=== PATIENT | male | born 1945 | race Asian ===

== ENCOUNTER 2017-03-08 17:50 | Inpatient (IN) | payer MEDICARE, OTHER ==
--- NOTE | 2017-03-08 19:32 | PDOC ---
History of Present Illness - General History Source: Patient, Family (Son-in-law), Old Records Exam Limitations: No Limitations - History of Present Illness Initial Comments: 03/08/17 19:36 The patient is a 71 year old male, with a significant past medical history of atrial fibrillation (on Xarelto) and gastric CA (nine years ago) s/p resection, who presents to the emergency department with worsening left sided facial redness, pain and swelling for the past 5 days. The patient states that 5 days ago, he was shaving and cut his left lower lip. The following day the noticed some drainage from the wound. Over the course of the past several days, he has noticed increasing redness, pain and swelling to the left side of his face. He reports that he saw his PCP who prescribed Keflex, which he states he has been compliant with. However, because his symptoms have been progressively worsening , he came to the ED for further evaluation. The patient denies fever or chills. The patient denies recently returned from [place] on 02/21/2017. The patients son- in-law is at the bedside. Allergies: None reported. Past Surgical History: Resection. Social History: Former smoker. Denies alcohol or drug use. PCP: Dr. Bower ([facility]; Not On Staff) <Emily Reece - Last Filed: 03/08/17 19:37> <Luz Marina Wagner - Last Filed: 03/09/17 05:36> - General Chief Complaint: Redness To Affected Area Stated Complaint: FACIAL SWELLING & REDNESS Time Seen by Provider: 03/08/17 18:19 Past History <Emily Reece - Last Filed: 03/08/17 19:37> - Past Medical History Cancer: Yes (STOMACH) Cardiac Disorders: Yes (afib) GI Disorders: Yes - Surgical History Abdominal Surgery: Yes (STOMACH CA) - Psycho/Social/Smoking Cessation Hx Suicidal Ideation: No Smoking History: Former smoker Have you smoked in the past 12 months: No If you are a former smoker, when did you quit?: 2007 Information on smoking cessation initiated: No Hx Alcohol Use: No Drug/Substance Use Hx: No Substance Use Type: None <Luz Marina Wagner - Last Filed: 03/09/17 05:36> - Past Medical History Allergies/Adverse Reactions: Allergies Allergy/AdvReac Type Severity Reaction Status Date / Time No Known Allergies Allergy Verified 11/09/16 16:44 Home Medications: Ambulatory Orders Cephalexin [Keflex] 500 mg PO TID 03/08/17 Review of Systems - Review of Systems Able to Perform ROS?: Yes Comments:: 03/08/17 19:37 CONSTITUTIONAL: Absent: fever, chills, diaphoresis, generalized weakness, malaise, loss of appetite HEENT: Absent: rhinorrhea, nasal congestion, throat pain, throat swelling, difficulty swallowing, mouth swelling, ear pain, eye pain, visual changes CARDIOVASCULAR: Absent: chest pain, syncope, palpitations, irregular heart rate, lightheadedness , peripheral edema RESPIRATORY: Absent: cough, shortness of breath, dyspnea with exertion, orthopnea, wheezing, stridor, hemoptysis GASTROINTESTINAL: Absent: abdominal pain, abdominal distension, nausea, vomiting, diarrhea, constipation, melena, hematochezia GENITOURINARY: Absent: dysuria, frequency, urgency, hesitancy, hematuria, flank pain, genital pain MUSCULOSKELETAL: Absent: myalgia, arthralgia, joint swelling SKIN: Present: +Left sided facial redness, pain and swelling Absent: itching, pallor HEMATOLOGIC/IMMUNOLOGIC: Absent: easy bleeding, easy bruising, lymphadenopathy, frequent infections ENDOCRINE: Absent: unexplained weight gain, unexplained weight loss, heat intolerance, cold intolerance NEUROLOGIC: Absent: headache, focal weakness or paresthesias, dizziness, unsteady gait, seizure, mental status changes, bladder or bowel incontinence PSYCHIATRIC: Absent: anxiety, depression, suicidal or homicidal ideation, hallucinations <Emily Reece - Last Filed: 03/08/17 19:37> *Physical Exam - Vital Signs Last Vital Signs Temp Pulse Resp BP Pulse Ox 100.1 F H 74 16 113/84 100 03/08/17 18:15 03/08/17 18:15 03/08/17 18:15 03/08/17 18:15 03/08/17 18:15 - Physical Exam Comments: 03/08/17 19:38 GENERAL: The patient is awake, alert, and fully oriented, in no acute distress. HEAD: Normal with no signs of trauma. EYES: Pupils equal, round and reactive to light, extraocular movements intact, sclera anicteric, conjunctiva clear with no pallor. ENT: Left facial erythema/edema extending from the midline of the chin to the lateral aspect of the periorbital area. Scattered vesicular rash extending from preauricular region to the lateral aspect of the mouth. Overlying the rash, there is crusting and escar especially of the lower chin and perioral area. Moderate upper and lower lip edema. Tongue and uvula are not edematous. No intraoral lesions are present. Left ear is moderately erythematous and edematous extending into external ear canal. TM is not visualized. Ears normal, nares patent, oropharynx clear without exudates. Moist mucous membranes. NECK: Left side, erythema with minimal edema without other notable rashes. Scattered enlarged mildly tender lymphadenopathy. Normal range of motion, supple without JVD or masses. LUNGS: Breath sounds equal, clear to auscultation bilaterally. No wheeze/ crackles. HEART:Irregularly irregular, normal S1 and S2 without murmur or rub. ABDOMEN: Soft/nontender/nondistended. BS wnl. No guarding or rebound. No palpable masses. No hepatosplenomegaly. EXTREMITIES: Normal range of motion, no edema. No clubbing or cyanosis. No cords , erythema, or tenderness. NEUROLOGICAL: Cranial nerves II through XII grossly intact. Normal speech, normal gait. PSYCH: Normal mood, normal affect. SKIN: Warm, dry, normal turgor. <Emily Reece - Last Filed: 03/08/17 19:37> - Vital Signs Last Vital Signs Temp Pulse Resp BP Pulse Ox 100.1 F H 74 16 113/84 100 03/08/17 18:15 03/08/17 18:15 03/08/17 18:15 03/08/17 18:15 03/08/17 18:15 <Luz Marina Wagner - Last Filed: 03/09/17 05:36> ED Treatment Course - LABORATORY CBC & Chemistry Diagram: 03/08/17 18:55 03/08/17 18:55 <Emily Reece - Last Filed: 03/08/17 19:37> - LABORATORY CBC & Chemistry Diagram: 03/08/17 18:55 03/08/17 18:55 <Luz Marina Wagner - Last Filed: 03/09/17 05:36> Medical Decision Making - Medical Decision Making Documentation has been prepared under my direction and personally reviewed by me in its entirety. I attest that this documented accurately reflects all work, treatment, procedures and medical decision making performed by me. As noted above, this 71-year-old man with a history of atrial fibrillation presents with a three-day history of progressive left facial edema/erythema and discomfort. Patient believes that episode began when he nicked his face while shaving 4 days ago (in the left lower cheek region). He states that inflammation and rash began after that. He was seen by his own doctor (Dr. Cochran in [facility]) who prescribed Keflex. Patient took this as prescribed but symptoms progressed. Patient denies previous episodes of cellulitis/abscess or resistant organism colonization. He also denies any previous episodes of his zoster rash. Exam as noted. The patient has erythema and edema extending from the left ear downward to the left side of his chin. There is no significant eye involvement; all of the rash/inflammation is strictly on the left side of his face. Also, he has scattered vesicles of the cheek with brownish fluid within them (fluid sent for viral and bacterial culture). There are open wounds /eschars , especially in the lower portion of his chin. CBC/chemistry profile/blood cultures/lactic acid sent. CBC is normal without elevation of the white blood cell count or other abnormality. Chemistry profile notable for evidence of renal insufficiency with BUN of 31 and creatinine of 1.6. First lactic acid level was 2; subsequent value was 1.3. First dose of vancomycin (750 mg because of decreased creatinine clearance) given. Noncontrast CT of the face and neck performed to evaluate for deep abscesses. Interpretation by Imaging projection printer revealed edema consistent with cellulitis but no evidence of drainable fluid collections. Patient does not have PMD on our staff; [facility] called and case discussed with Dr. Boland. Patient will be admitted to medical/surgical bed here at [facility]. Patient given acyclovir 600 mg IV <Luz Marina Wagner - Last Filed: 03/09/17 05:36> *DC/Admit/Observation/Transfer - Attestations Scribe Attestion: 03/08/17 19:35 Documentation prepared by Emily Reece, acting as medical aides teacher for Luz Marina Wagner MD. <Emily Reece - Last Filed: 03/08/17 19:37> - Discharge Dispostion Admit: Yes <Luz Marina Wagner - Last Filed: 03/09/17 05:36> Diagnosis at time of Disposition: Facial cellulitis, Renal insufficiency Herpes zoster Qualifiers: Herpes zoster complications: without complications Qualified Code(s): B02.9 - Zoster without complications - Discharge Dispostion Condition at time of disposition: Stable
[2017-03-08 19:43] LABS: WHITE BLOOD COUNT 6.3 K/mm3 (4.0-10.8)
[2017-03-08 19:46] LABS: MCHC 34.3 g/dl (32.0-35.9); RDW 13.4 % (11.9-15.9)
[2017-03-08 19:49] LABS: ALBUMIN 3.8 g/dl (3.5-5.0); ALK PHOS 60 U/L (32-92); ANION GAP 9 (8-16); BILIRUBIN,TOTAL 0.8 mg/dl (0.2-1.0); CALCIUM 8.4 mg/dl (8.4-10.2); CO2 22 mmol/L (22-28); CREATININE 1.6 mg/dl (0.6-1.3); GLUCOSE,RANDOM 121 mg/dl (74-106); SGOT/AST 24 U/L (10-42); SGPT/ALT 14 U/L (10-40); TOT PROT 7.4 g/dl (6.4-8.3)
[2017-03-08 19:55] LABS: MCH 31.2 pg (25.7-33.7); MEAN CELL VOLUME 91.2 fl (80-96)
[2017-03-08 19:56] LABS: ACTIVATED PTT 28.2 SECONDS (24.0-38.9); MEAN PLT VOLUME 10.2 fl (7.5-11.1); PLATELET COUNT 146 K/MM3 (134-434)
[2017-03-08 20:00] LABS: INR 1.28 (0.82-1.09); PROTHROMBIN TIME (PATIENT) 14.3 SEC (10.2-13.0)
[2017-03-08] MEDS ORDERED: VANCOMYCIN 750 MG in DEXTROSE 5%-WATER - 250 ML IVPB ONE (22:08)
[2017-03-08] MEDS ORDERED: VANCOMYCIN 1,000 MG VIAL (RESTRICTED TO ID ONLY) ONE (22:15)
[2017-03-09] MEDS ORDERED: ACYCLOVIR INJECTION 600 MG in DEXTROSE 5%-WATER - 100 ML IVPB ONE (00:02)
--- NOTE | 2017-03-09 01:10 | HP ---
CHIEF COMPLAINT: swelling to face PCP: Cheli in [facility] HISTORY OF PRESENT ILLNESS: This is a 71 year old male with a past medical history of atrial fibrillation and stomach CA who presented to the ED with swelling and redness to his face x 4 -5 days. Son reports pt developed a rash as well that spread all over his face. Pt states he cut himself while shaving near his right lower lip and then it became reddened and inflamed. He presented to his PCP who prescribed cephalexin without relief. Pt denies pain, but does report difficulty swallowing at times due to pain with poor po intake. Pt denies any eye pain, vision changes. ER course was notable for: (1) WBC 6.3 (2) Sodium 130 Recent Travel: pt reports returning from [place] on 02/21 PAST MEDICAL HISTORY: Atrial fibrillation on xarelto gastric CA 9y ago PAST SURGICAL HISTORY: gastric resection Social History: Smoking: quit 9y ago, 1ppd Alcohol: pt denies Drugs: pt denies Allergies No Known Allergies Allergy (Verified 11/09/16 16:44) HOME MEDICATIONS: 3 Medication Instructions Recorded Cephalexin [Keflex] 500 mg PO TID 03/08/17 metoprolol succinate [toprol xl] 25mg po daily xarelto 15mg po daily REVIEW OF SYSTEMS CONSTITUTIONAL: Absent: fever, chills, diaphoresis, generalized weakness, malaise, loss of appetite, weight change HEENT: Absent: rhinorrhea, nasal congestion, throat pain, throat swelling, difficulty swallowing, mouth swelling, ear pain, eye pain, visual changes CARDIOVASCULAR: Absent: chest pain, syncope, palpitations, irregular heart rate, lightheadedness , peripheral edema RESPIRATORY: Absent: cough, shortness of breath, dyspnea with exertion, orthopnea, wheezing, stridor, hemoptysis GASTROINTESTINAL: Absent: abdominal pain, abdominal distension, nausea, vomiting, diarrhea, constipation, melena, hematochezia GENITOURINARY: Absent: dysuria, frequency, urgency, hesitancy, hematuria, flank pain, genital pain MUSCULOSKELETAL: Absent: myalgia, arthralgia, joint swelling, back pain, neck pain SKIN: Present: rash Absent: itching, pallor HEMATOLOGIC/IMMUNOLOGIC: Absent: easy bleeding, easy bruising, lymphadenopathy, frequent infections ENDOCRINE: Absent: unexplained weight gain, unexplained weight loss, heat intolerance, cold intolerance NEUROLOGIC: Absent: headache, focal weakness or paresthesias, dizziness, unsteady gait, seizure, mental status changes, bladder or bowel incontinence PSYCHIATRIC: Absent: anxiety, depression, suicidal or homicidal ideation, hallucinations. PHYSICAL EXAMINATION Vital Signs - 24 hr 3 03/08/17 03/08/17 18:15 21:57 Temperature 100.1 F H 98.5 F Pulse Rate 74 Respiratory 16 Rate Blood Pressure 113/84 O2 Sat by Pulse 100 Oximetry (%) GENERAL: Awake, alert, and fully oriented, in no acute distress. HEAD: Normal with no signs of trauma. EYES: Pupils equal, round and reactive to light, extraocular movements intact, sclera anicteric, conjunctiva clear. No lid lag. EARS, NOSE, THROAT: Ears normal, nares patent, oropharynx clear without exudates. Moist mucous membranes. NECK: Normal range of motion, supple without lymphadenopathy, JVD, or masses. LUNGS: Breath sounds clear to auscultation left. No wheezes, and no crackles. No accessory muscle use. Diminished right base with crackles HEART: Regular rate and rhythm, normal S1 and S2 without murmur, rub or gallop. ABDOMEN: Soft, nontender, not distended, normoactive bowel sounds, no guarding, no rebound, no masses. No hepatomegaly or splenomegaly. MUSCULOSKELETAL: Normal range of motion at all joints. No bony deformities or tenderness. No CVA tenderness. UPPER EXTREMITIES: 2+ pulses, warm, well-perfused. No cyanosis. No clubbing. No peripheral edema. LOWER EXTREMITIES: 2+ pulses, warm, well-perfused. No calf tenderness. No peripheral edema. NEUROLOGICAL: Cranial nerves II-XII intact. Normal speech. Normal gait. PSYCHIATRIC: Cooperative. Good eye contact. Appropriate mood and affect. SKIN: Warm, dry, normal turgor, normal capillary refill. left side of face with vesicular rash from midline of chin, L cheek, L ear. + erythema and swelling. + yellowish discharge/slough noted to lip, no lesions inside mouth/cheek Laboratory Results - last 24 hr 3 03/08/17 03/08/17 03/08/17 03/08/17 18:55 18:55 18:55 21:15 WBC 6.3 D RBC 4.55 Hgb 14.2 Hct 41.5 MCV 91.2 MCHC 34.3 RDW 13.4 Plt Count 146 MPV 10.2 Neutrophils % 55.0 D Lymphocytes % 22.0 D Monocytes % 12.0 H D Band Neutrophils 8.0 Reactive Lymphocytes 3 INR 1.28 H PTT (Actin FS) 28.2 Sodium 130 L Potassium 4.1 Chloride 99 Carbon Dioxide 22 Anion Gap 9 BUN 31 H D Creatinine 1.6 H D Creat Clearance w eGFR 42.95 Random Glucose 121 H Lactic Acid 2.0 1.3 Calcium 8.4 Total Bilirubin 0.8 D AST 24 ALT 14 Alkaline Phosphatase 60 Total Protein 7.4 Albumin 3.8 Radiology Results CXR, read by me, haziness noted RLL, ? atelectasis, official read pending Exam: CT facial bones without contrast This is a preliminary report by imaging acetone recovery worker Images: 310 Clinical indication: Left-sided facial cellulitis. Rule out abscess. Findings: Patient positioning is suboptimal. 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 The orbits and globes have a normal unenhanced appearance. There is no infiltration of the orbital fat or emphysema. Minimal mucosal thickening is noted in the right maxillary sinus. The paranasal sinuses middle ear cavities and mastoids are otherwise aerated and clear. Opacity is noted in the external auditory canal on the left likely cerumen plug. The nasal cavity and oral cavity are unremarkable. The nasopharynx oropharynx epiglottis and visualized aryepiglottic folds are unremarkable. No parapharyngeal and paralaryngeal collection is seen. There is inferior labial and left facial soft tissue thickening consistent with cellulitis. No collection is identified. Impression: Inferior labial and left facial soft tissue swelling noted. No drainable collection seen. THIS DOCUMENT HAS BEEN ELECTRONICALLY SIGNED Rickey Carl M.D. 03/08/2017 23: 40 EST Exam: Noncontrast CT soft tissues of the neck This is a preliminary report by imaging acetone recovery worker Images: 210 Clinical indication: Left facial cellulitis. Rule out abscess. Reformatted coronal and sagittal images were provided. Findings: An area of encephalomalacia is noted in the left frontal lobe consistent with old infarcts. Mild involutional changes are noted. Limited evaluation of the orbits and globes unremarkable. The paranasal sinuses middle ear cavities and mastoids are aerated and clear. The nasal cavity and oral cavity is unremarkable. The nasopharynx oropharynx epiglottis and aryepiglottic folds are unremarkable. Stranding and infiltration is noted in the labial and facial subcutaneous tissues on the left. No abscess is identified. Limited evaluation of the cervical spine is unremarkable. No adenopathy seen. Fibrotic changes are noted in the lung apices. Impression: Infiltration of the labial and subcutaneous facial tissues on the left consistent with cellulitis. No abscess or collection identified. THIS DOCUMENT HAS BEEN ELECTRONICALLY SIGNED Rickey Carl M.D. 03/08/2017 23: 31 EST ASSESSMENT/PLAN: 71yM with PMH atrial fibrillation, gastric CA presented to ED with swelling and redness to left face. Herpes zoster with superimposed cellulitis - acyclovir 600mg Q12H IVPB (renal dose) - IV hydration, NS @ 100cc/hr - cont vancomycin 1g q24h, trough level day 3 - ID consult elevated Cr - likely due to hypovolemia secondary to poor po intake - NS @ 100cc/hr, repeat labs in am - renal dose medications to CrCl 30s Hyponatremia - likely related to poor po intake, trial NS hydration, repeat in am - urine sodium, cr, osmo Abnormal lung sounds, likely atelectasis - incentive spirometer Atrial fibrillation - cont home xarelto and metoprolol, rate well controlled DVT PPX - low risk, cont home eliquis FEN - NS @ 100cc/hr - BMP in am - soft diet as tolerated Dispo: Pt currently requires inpatient management of his emergent condition and expected LOS >2MN Visit type - Emergency Visit Emergency Visit: Yes ED Registration Date: 03/08/17 Care time: The patient presented to the Emergency Department on the above date and was hospitalized for further evaluation of their emergent condition. - New Patient This patient is new to me today: Yes Date on this admission: 03/09/17 - Critical Care Critical Care patient: No
[2017-03-09 01:43] VITALS: BMI 16.0
[2017-03-09 07:04] LABS: URINE APPEARANCE Clear; URINE BILIRUBIN 1+ (NEGATIVE); URINE BLOOD Negative (NEGATIVE); URINE GLUCOSE (UA) Negative (NEGATIVE); URINE KETONE Trace (NEGATIVE); URINE LEUK ESTERASE Negative (NEGATIVE); URINE NITRITE Negative (NEGATIVE); URINE UROBILINOGEN 2.0 E.U/dl (0.2-1.0)
[2017-03-09 07:06] LABS: URINE BACTERIA FEW /hpf (NEGATIVE); URINE COLOR YELLOW; URINE PROTEIN 2+ (NEGATIVE); URINE RBC 0-3 /hpf (0-3); URINE WBC 0-3 (3-5)
[2017-03-09] MEDS ORDERED: DEXTROSE 5%-NORMAL SALINE 1,000 ML IV SCH (08:00)
--- NOTE | 2017-03-09 08:01 | PN ---
Physical Exam: SUBJECTIVE: Patient seen and examined, reports feeling well, denies any chest pain or shortness of breath. OBJECTIVE: patient is a 71 year old male with a past medical history of atrial fibrillation and stomach CA. Patient was admitted from the emergency department for herpes zooster. Vital Signs Period Temp Pulse Resp BP Sys/Lowery Pulse Ox Last 24 Hr 98.3 F 98 19 114/76 97 GENERAL: The patient is awake, alert, and fully oriented, in no acute distress. HEAD: Normal with no signs of trauma. EYES: PERRL, extraocular movements intact, sclera anicteric, conjunctiva clear. No ptosis. ENT: Ears normal, nares patent, oropharynx clear without exudates, moist mucous membranes. NECK: Trachea midline, full range of motion, supple. LUNGS: Breath sounds equal, clear to auscultation bilaterally, no wheezes, no crackles, no accessory muscle use. HEART: Regular rate and rhythm, S1, S2 without murmur, rub or gallop. ABDOMEN: Soft, nontender, nondistended, normoactive bowel sounds, no guarding, no rebound, no hepatosplenomegaly, no masses. EXTREMITIES: 2+ pulses, warm, well-perfused, no edema. NEUROLOGICAL: Cranial nerves II through XII grossly intact. Normal speech, gait not observed. PSYCH: Normal mood, normal affect. SKIN: Warm, dry, normal turgor, vesicular rash from left cheek and upper and lower lips extending to left tragus, no ocular involvement noted. Laboratory Results - last 24 hr 03/09/17 06:15 Urine Color Yellow Urine Appearance Clear Urine pH 7.0 Ur Specific Lincoln 1.020 Urine Protein 2+ H Urine Glucose (UA) Negative Urine Ketones Trace Urine Blood Negative Urine Nitrite Negative Urine Bilirubin 1+ H Urine Urobilinogen 2.0 e.u/dl Ur Leukocyte Esterase Negative Urine RBC 0-3 Urine WBC 0-3 Ur Epithelial Cells Moderate Urine Bacteria Few Hyaline Casts 3-5 CBC WBC 6.8 K/mm3 (4.0-10.8) 03/09/17 07:00 RBC 4.59 M/mm3 (4.00-5.60) 03/09/17 07:00 Hgb 14.4 GM/dl (11.7-16.9) 03/09/17 07:00 Hct 42.9 % (35.4-49) 03/09/17 07:00 MCV 93.4 fl (80-96) 03/09/17 07:00 MCHC 33.5 g/dl (32.0-35.9) 03/09/17 07:00 RDW 13.0 % (11.9-15.9) 03/09/17 07:00 Plt Count 141 K/MM3 (134-434) 03/09/17 07:00 MPV 9.8 fl (7.5-11.1) 03/09/17 07:00 Neutrophils % 60.0 % (42.8-82.8) 03/09/17 07:00 Lymphocytes % 21.5 % (8-40) 03/09/17 07:00 Monocytes % 18.0 % (3.8-10.2) H 03/09/17 07:00 Eosinophils % 0.3 % (0-4.5) D 03/09/17 07:00 Basophils % 0.2 % (0-2.0) 03/09/17 07:00 Band Neutrophils 8.0 % (0-10) 03/08/17 18:55 Reactive Lymphocytes 3 % (0-80) 03/08/17 18:55 CMP Sodium 136 mmol/L (136-145) 03/09/17 07:00 Potassium 4.3 mmol/L (3.5-5.1) 03/09/17 07:00 Chloride 103 mmol/L (98-107) 03/09/17 07:00 Carbon Dioxide 21 mmol/L (22-28) L 03/09/17 07:00 Anion Gap 12 (8-16) 03/09/17 07:00 BUN 26 mg/dl (7-18) H 03/09/17 07:00 Creatinine 1.1 mg/dl (0.6-1.3) D 03/09/17 07:00 Creat Clearance w eGFR 42.95 (>60) 03/08/17 18:55 Random Glucose 128 mg/dl (74-106) H 03/09/17 07:00 Lactic Acid 1.3 mmol/L (0.4-2.0) 03/08/17 21:15 Calcium 8.4 mg/dl (8.4-10.2) 03/09/17 07:00 Phosphorus 4.1 mg/dl (2.5-4.6) 03/09/17 07:00 Magnesium 2.0 mg/dL (1.8-2.4) 03/09/17 07:00 Total Bilirubin 0.8 mg/dl (0.2-1.0) D 03/08/17 18:55 AST 24 U/L (10-42) 03/08/17 18:55 ALT 14 U/L (10-40) 03/08/17 18:55 Alkaline Phosphatase 60 U/L (32-92) 03/08/17 18:55 Total Protein 7.4 g/dl (6.4-8.3) 03/08/17 18:55 Albumin 3.8 g/dl (3.5-5.0) 03/08/17 18:55 Active Medications Generic Name Dose Route Start Last Admin Trade Name Freq PRN Reason Stop Dose Admin Acyclovir 600 mg/ Dextrose 112 mls @ 100 mls/hr 03/09/17 10:00 IVPB Q12H [facility] Metoprolol Succinate 25 mg 03/09/17 10:00 Toprol Xl - PO DAILY [facility] Pneumococcal Polyvalent Vaccine 0.5 ml 03/09/17 10:00 Pneumovax - IM 03/09/17 10:01 .ONCE ONE Rivaroxaban 15 mg 03/09/17 10:00 Xarelto - PO DAILY [facility] Imaging CXR, no acute pathology CT facial bones without contrast/soft tissue of neck: patent airway, soft tissue swelling noted consistent with facial and neck cellulitis ASSESSMENT/PLAN: 1) 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 - continue acyclovir 500mg TID - ID Serge, reshma and following 2) neph delgado - likely secondary to dehydration, repeat creatine 1.1 improved after IV hydration - repeat creatine in AM 3) card afib - rate controlled continue metoprolol - continue xarelto DVT PPX - low risk, cont home eliquis FEN - ivf-->d5ns @100ml/hr - replete lytes prn - soft diet Dispo: Pt currently requires inpatient management of his emergent condition and expected LOS >2MN Visit type - Emergency Visit Emergency Visit: Yes ED Registration Date: 03/09/17 Care time: The patient presented to the Emergency Department on the above date and was hospitalized for further evaluation of their emergent condition. - New Patient This patient is new to me today: No - Critical Care Critical Care patient: No - Discharge Referral Referred to [facility] Med P.C.: No
--- NOTE | 2017-03-09 09:17 | PN ---
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
--- NOTE | 2017-03-09 09:17 | EKG ---
Test Reason : Blood Pressure : / mmHG Vent. Rate : 116 BPM Atrial Rate : 111 BPM P-R Int : 000 ms QRS Dur : 092 ms QT Int : 370 ms P-R-T Axes : 000 077 -36 degrees QTc Int : 514 ms ATRIAL FIBRILLATION WITH RAPID VENTRICULAR RESPONSE INCOMPLETE RIGHT BUNDLE BRANCH BLOCK NONSPECIFIC ST AND T WAVE ABNORMALITY ABNORMAL ECG WHEN COMPARED WITH ECG OF 09-NOV-2016 17:45, NONSPECIFIC T WAVE ABNORMALITY NOW EVIDENT IN INFERIOR LEADS Confirmed by ELROY SANTIAGO MD ([id number]) on 03/09/2017 9:16:55 AM Referred By: EARLENE Confirmed By:ELROY SANTIAGO MD
[2017-03-09 09:31] LABS: BASOPHIL 0.2 % (0-2.0); CALCIUM 8.4 mg/dl (8.4-10.2); CREATININE 1.1 mg/dl (0.6-1.3); EOSINOPHIL 0.3 % (0-4.5); GLUCOSE,RANDOM 128 mg/dl (74-106); MCH 31.3 pg (25.7-33.7); MCHC 33.5 g/dl (32.0-35.9); MEAN CELL VOLUME 93.4 fl (80-96); MEAN PLT VOLUME 9.8 fl (7.5-11.1); PHOSPHOROUS 4.1 mg/dl (2.5-4.6); PLATELET COUNT 141 K/MM3 (134-434); WHITE BLOOD COUNT 6.8 K/mm3 (4.0-10.8)
[2017-03-09] MEDS ORDERED: ACYCLOVIR INJECTION 600 MG in DEXTROSE 5%-WATER - 100 ML IVPB SCH (10:00)
[2017-03-09] MEDS ORDERED: PNEUMOCOCCAL 23 VACCINE 0.5 ML VIAL IM ONE (10:00)
[2017-03-09] MEDS: RIVAROXABAN 15 MG TABLET PO SCH (10:05)
[2017-03-09] MEDS: METOPROLOL SUCCINATE 25 MG TAB.SR.24H (FP) PO SCH (10:05)
[2017-03-09] MEDS: ACYCLOVIR INJECTION 500 MG in DEXTROSE 5%-WATER - 100 ML IVPB SCH ×2 (10:06→18:46)
--- NOTE | 2017-03-09 10:36 | CONS ---
DATE OF CONSULTATION: HISTORY: A 71-year-old male evaluated for herpes zoster of the face. The patient was admitted to the hospital with a 5-day history of left fascial erythema, pain, and swelling. He reported that approximately 5 days prior to admission he had cut his left lower lip while shaving and subsequently developed worsening facial erythema, warmth, swelling, and pain. He was seen by his primary care physician and prescribed Keflex. He presented to the hospital where he was felt to have herpes zoster of the face. He was started on IV acyclovir. A CAT scan of the head shows left facial cellulitis without evidence of abscess formation. At the present time, he is awake and alert. He complains of left facial pain. No reports of any change in his visual acuity. He has been afebrile with a normal white blood cell count. PAST MEDICAL HISTORY: Positive for atrial fibrillation and gastric cancer. PAST SURGICAL HISTORY: Status post gastrectomy. ALLERGIES: No known allergies. MEDICATIONS: Include acyclovir, Xarelto, Toprol. SOCIAL HISTORY: Former smoker. No history of alcohol abuse. Lives at home. SYSTEMS REVIEW: Neurologic: No loss of consciousness, seizure activity, focal weakness. Cardiac: Negative chest pain or palpitations. Respiratory: Negative cough or sputum production. Gastrointestinal: As per HPI. Genitourinary: Negative for urinary tract infection. LABORATORY DATA: White count 6.3, hematocrit 41.5, platelet count 145, BUN 31, creatinine 1.6. Urinalysis: 0-3 white cells. PHYSICAL EXAMINATION: General: The patient is awake and alert. He is not acutely toxic appearing. Vital Signs: Temperature 98.3, T-max 100.1, blood pressure 114/76, pulse 78 and regular, respirations 19 per minute. HEENT: Sclerae anicteric. Examination of the face, there is a vesicular rash, which appears encrusted involving the face extending from the left pinna involving the left external auditory canal extending to the preauricular area and the left mandibular area. There is honey-colored crusting with some residual vesicular lesions. There appears to be a facial palsy with left eyelid drooping and flattening of the left nasolabial fold. There is no conjunctivitis noted. There are no vesicular lesions noted on the tip of the nose. Heart: Sounds S1, S2. Irregular. Lungs: Clear. Abdomen: Healed surgical scar. No tenderness elicited. No mass, rebound, or rigidity. Extremities: Negative for edema. IMPRESSION: 1. Left facial herpes zoster. 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 3. Azotemia. 4. History of gastric cancer. PLAN: Continue acyclovir 500 mg IV piggyback every 8 hours. IV fluid hydration. Analgesics as needed. We will follow. Thank you for the kind referral. VERONIKA ZAVALA M.D. [id number]
[2017-03-09 11:34] LABS: ANION GAP 12 (8-16); CO2 21 mmol/L (22-28)
[2017-03-09] MEDS: RANITIDINE HCL 150 MG TABLET (FP) PO SCH (14:29)
[2017-03-09] MEDS ORDERED: PT OWN MED DRAWER 7, Y5N ONE (17:48)
[2017-03-09] MEDS: DEXTROSE 5%-NORMAL SALINE 1,000 ML IV SCH (18:51)
[2017-03-10] MEDS: ACYCLOVIR INJECTION 500 MG in DEXTROSE 5%-WATER - 100 ML IVPB SCH ×3 (01:00→17:24)
[2017-03-10] MEDS ORDERED: PT OWN MED DRAWER 7, Y5N ONE ×2 (03:36→09:19)
--- NOTE | 2017-03-10 08:22 | PN ---
Progress Note, Physician History of Present Illness: Awake, alert No complaints of facial pain Temps down, afebrile Tolerating acyclovir - Current Medication List Current Medications: Active Medications Acyclovir 500 mg/ Dextrose 110 mls @ 110 mls/hr IVPB Q8H-IV [facility] Last Admin: 03/09/17 18:46 Dose: 110 mls/hr Dextrose/Sodium Chloride (D5-Ns -) 1,000 mls @ 75 mls/hr IV ASDIR [facility] Last Admin: 03/09/17 18:51 Dose: 75 mls/hr Metoprolol Succinate (Toprol Xl -) 25 mg PO DAILY [facility] Last Admin: 03/09/17 10:05 Dose: 25 mg Ranitidine HCl (Zantac -) 150 mg PO DAILY [facility] Last Admin: 03/09/17 14:29 Dose: 150 mg Rivaroxaban (Xarelto -) 15 mg PO DAILY [facility] Last Admin: 03/09/17 10:05 Dose: 15 mg - Objective Vital Signs: Vital Signs Temperature 98.9 F 03/10/17 04:00 Pulse Rate 88 03/10/17 04:00 Respiratory Rate 03/10/17 04:00 Blood Pressure 99/69 03/10/17 04:00 O2 Sat by Pulse Oximetry (%) 100 03/10/17 06:39 Constitutional: Yes: No Distress, Thin Eyes: Yes: Conjunctiva Clear, Other (less L facial droop) Cardiovascular: Yes: Regular Rate and Rhythm, S1, S2 Respiratory: Yes: CTA Bilaterally Gastrointestinal: Yes: Normal Bowel Sounds, Soft. No: Tenderness Edema: No Labs: CBC, BMP 03/09/17 07:00 03/09/17 07:00 INR, PTT INR 1.28 (0.82-1.09) H 03/08/17 18:55 Assessment/Plan VZV L V3 distribution Charlton Keys Syndrome Continue IV acyclovir/ IVF hydration
--- NOTE | 2017-03-10 09:14 | PN ---
Physical Exam: SUBJECTIVE: Patient seen and examined, patient reports feeling much better, denies any tactile fever, tolerating meals. OBJECTIVE: patient is a 71 year old male with a past medical history of atrial fibrillation and stomach CA. Patient was admitted from the emergency department for herpes zooster. Vital Signs Period Temp Pulse Resp BP Sys/Lowery Pulse Ox Last 24 Hr 98.1 F-98.9 F 88-90 17-18 99-120/69-77 97-100 GENERAL: The patient is awake, alert, and fully oriented, in no acute distress. HEAD: Normal with no signs of trauma. EYES: PERRL, extraocular movements intact, sclera anicteric, conjunctiva clear. No ptosis. ENT: Ears normal, nares patent, oropharynx clear without exudates, moist mucous membranes. NECK: Trachea midline, full range of motion, supple. LUNGS: Breath sounds equal, clear to auscultation bilaterally, no wheezes, no crackles, no accessory muscle use. HEART: Regular rate and rhythm, S1, S2 without murmur, rub or gallop. ABDOMEN: Soft, nontender, nondistended, normoactive bowel sounds, no guarding, no rebound, no hepatosplenomegaly, no masses. EXTREMITIES: 2+ pulses, warm, well-perfused, no edema. NEUROLOGICAL: Cranial nerves II through XII grossly intact. Normal speech, gait not observed. PSYCH: Normal mood, normal affect. SKIN: Warm, dry, normal turgor, vesicular rash from left cheek and upper and lower lips extending to left tragus, no ocular involvement noted. partial crusting noted of lesions, rash does not cross the midline. Laboratory Results - last 24 hr 03/09/17 03/09/17 07:00 07:00 WBC 6.8 RBC 4.59 Hgb 14.4 Hct 42.9 MCV 93.4 MCHC 33.5 RDW 13.0 Plt Count 141 MPV 9.8 Neutrophils % 60.0 Lymphocytes % 21.5 Monocytes % 18.0 H Eosinophils % 0.3 D Basophils % 0.2 Sodium 136 Potassium 4.3 Chloride 103 Carbon Dioxide 21 L Anion Gap 12 BUN 26 H Creatinine 1.1 D Random Glucose 128 H Calcium 8.4 Phosphorus 4.1 Magnesium 2.0 Active Medications Generic Name Dose Route Start Last Admin Trade Name Freq PRN Reason Stop Dose Admin Acyclovir 500 mg/ Dextrose 110 mls @ 110 mls/hr 03/09/17 10:00 03/09/17 18:46 IVPB 110 mls/hr Q8H-IV [facility] Administration Dextrose/Sodium Chloride 1,000 mls @ 75 mls/hr 03/09/17 18:00 03/09/17 18:51 D5-Ns - IV 75 mls/hr ASDIR [facility] Administration Metoprolol Succinate 25 mg 03/09/17 10:00 03/09/17 10:05 Toprol Xl - PO 25 mg DAILY [facility] Administration Ranitidine HCl 150 mg 03/09/17 13:30 03/09/17 14:29 Zantac - PO 150 mg DAILY [facility] Administration Rivaroxaban 15 mg 03/09/17 10:00 03/09/17 10:05 Xarelto - PO 15 mg DAILY [facility] Administration ASSESSMENT/PLAN: Imaging CXR, no acute pathology CT facial bones without contrast/soft tissue of neck: patent airway, soft tissue swelling noted consistent with facial and neck cellulitis ASSESSMENT/PLAN: 1) 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 - partial crusting of lesions noted, continue acyclovir 500mg TID - ID Serge, consulted and following 2) neph delgado - creatine 1.1 downtrending, improved after IV hydration, pending am labs - repeat creatine in AM 3) card afib - rate controlled continue metoprolol - continue xarelto DVT PPX - low risk, cont home eliquis - scd - pt FEN - ivf-->d5ns @ 75ml/hr - replete lytes prn - soft diet Dispo: Pt currently requires inpatient management of his emergent condition and expected LOS >2MN Visit type - Emergency Visit Emergency Visit: Yes ED Registration Date: 03/09/17 Care time: The patient presented to the Emergency Department on the above date and was hospitalized for further evaluation of their emergent condition. - New Patient This patient is new to me today: No - Critical Care Critical Care patient: No - Discharge Referral Referred to [facility] Med P.C.: No
[2017-03-10] MEDS: RIVAROXABAN 15 MG TABLET PO SCH (09:28)
[2017-03-10] MEDS: RANITIDINE HCL 150 MG TABLET (FP) PO SCH (09:28)
[2017-03-10] MEDS: METOPROLOL SUCCINATE 25 MG TAB.SR.24H (FP) PO SCH (09:28)
[2017-03-10 14:17] LABS: BASOPHIL 0.8 % (0-2.0); MCHC 33.5 g/dl (32.0-35.9); MEAN CELL VOLUME 92.3 fl (80-96); MEAN PLT VOLUME 9.4 fl (7.5-11.1); NEUTROPHILS 61.9 % (42.8-82.8); PLATELET COUNT 132 K/MM3 (134-434); RDW 13.1 % (11.9-15.9)
[2017-03-10 14:24] LABS: ALBUMIN 3.3 g/dl (3.5-5.0); ALK PHOS 60 U/L (32-92); ANION GAP 7 (8-16); BILIRUBIN,TOTAL 0.7 mg/dl (0.2-1.0); CO2 20 mmol/L (22-28); CREATININE 1.3 mg/dl (0.6-1.3); GLUCOSE,RANDOM 99 mg/dl (74-106); MAGNESIUM 1.8 mg/dL (1.8-2.4); PHOSPHOROUS 3.6 mg/dl (2.5-4.6); SGOT/AST 24 U/L (10-42); SGPT/ALT 14 U/L (10-40)
[2017-03-10 14:52] LABS: URINE CREATININE 49.4 mg/dL (20-370)
[2017-03-10] MEDS: DEXTROSE 5%-NORMAL SALINE 1,000 ML IV SCH (20:50)
[2017-03-11] MEDS: ACYCLOVIR INJECTION 500 MG in DEXTROSE 5%-WATER - 100 ML IVPB SCH ×3 (01:54→17:33)
--- NOTE | 2017-03-11 08:50 | PN ---
Progress Note, Physician History of Present Illness: Improved More awake and alert No c/o facial /ear pain Facial palsy improved- nearly all resolved Afebrile WBC WNL Azotemia improved - Current Medication List Current Medications: Active Medications Acyclovir 500 mg/ Dextrose 110 mls @ 110 mls/hr IVPB Q8H-IV [facility] Last Admin: 03/11/17 01:54 Dose: 110 mls/hr Dextrose/Sodium Chloride (D5-Ns -) 1,000 mls @ 75 mls/hr IV ASDIR [facility] Last Admin: 03/10/17 20:50 Dose: 75 mls/hr Metoprolol Succinate (Toprol Xl -) 25 mg PO DAILY [facility] Last Admin: 03/10/17 09:28 Dose: 25 mg Ranitidine HCl (Zantac -) 150 mg PO DAILY [facility] Last Admin: 03/10/17 09:28 Dose: 150 mg Rivaroxaban (Xarelto -) 15 mg PO DAILY [facility] Last Admin: 03/10/17 09:28 Dose: 15 mg - Objective Vital Signs: Vital Signs Temperature 98.0 F 03/11/17 06:00 Pulse Rate 81 03/11/17 06:00 Respiratory Rate 18 03/11/17 06:00 Blood Pressure 105/78 03/11/17 06:00 O2 Sat by Pulse Oximetry (%) 98 03/11/17 08:25 Constitutional: Yes: No Distress Eyes: Yes: Conjunctiva Clear HENT: Yes: Other (herpes zoster lesions encrusting; do not appear secondarily infected) Cardiovascular: Yes: Regular Rate and Rhythm, S1, S2 Respiratory: Yes: CTA Bilaterally Gastrointestinal: Yes: Normal Bowel Sounds, Soft. No: Tenderness Edema: No Labs: CBC, BMP 03/10/17 13:30 03/10/17 13:30 INR, PTT INR 1.28 (0.82-1.09) H 03/08/17 18:55 Assessment/Plan VZV L V3 distribution Sandy Keys Syndrome- improved may substitute po Valtrex 1gm tid x 7days Wound c/s GNR likely skin colonizer
[2017-03-11] MEDS: RIVAROXABAN 15 MG TABLET PO SCH (09:49)
[2017-03-11] MEDS: RANITIDINE HCL 150 MG TABLET (FP) PO SCH (09:49)
[2017-03-11] MEDS: METOPROLOL SUCCINATE 25 MG TAB.SR.24H (FP) PO SCH (09:49)
--- NOTE | 2017-03-11 12:53 | DS ---
Physical Exam: SUBJECTIVE: Patient seen and examined, reports feeling well, denies any pain, patient denies any tactile fever. OBJECTIVE:This is a 71 year old male with a past medical history of atrial fibrillation and stomach CA who presented to the ED with swelling and redness to his face x 4-5 days. Son reports pt developed a rash as well that spread all over his face. Pt states he cut himself while shaving near his right lower lip and then it became reddened and inflamed. He presented to his PCP who prescribed cephalexin without relief. Pt denies pain, but does report difficulty swallowing at times due to pain with poor po intake. Pt denies any eye pain, vision changes. ER course was notable for: (1) WBC 6.3 (2) Sodium 130 Vital Signs Period Temp Pulse Resp BP Sys/Lowery Pulse Ox Last 24 Hr 97.9 F-98.0 F 81-99 16-18 96-105/69-78 98-99 PHYSICAL EXAM GENERAL: The patient is awake, alert, and fully oriented, in no acute distress. HEAD: Normal with no signs of trauma. EYES: PERRL, extraocular movements intact, sclera anicteric, conjunctiva clear. No ptosis. ENT: Ears normal, nares patent, oropharynx clear without exudates, moist mucous membranes. NECK: Trachea midline, full range of motion, supple. LUNGS: Breath sounds equal, clear to auscultation bilaterally, no wheezes, no crackles, no accessory muscle use. HEART: Regular rate and rhythm, S1, S2 without murmur, rub or gallop. ABDOMEN: Soft, nontender, nondistended, normoactive bowel sounds, no guarding, no rebound, no hepatosplenomegaly, no masses. EXTREMITIES: 2+ pulses, warm, well-perfused, no edema. NEUROLOGICAL: Cranial nerves II through XII grossly intact. Normal speech, gait not observed. PSYCH: Normal mood, normal affect. SKIN: Warm, dry, normal turgor, vesicular rash from left cheek and upper and lower lips extending to left tragus, no ocular involvement noted. complete crusting noted of lesions, rash does not cross the midline. LABS Laboratory Results - last 24 hr 03/09/17 03/09/17 03/10/17 06:15 06:15 13:30 WBC 7.0 RBC 4.29 Hgb 13.3 Hct 39.6 MCV 92.3 MCHC 33.5 RDW 13.1 Plt Count 132 L MPV 9.4 Neutrophils % 61.9 Lymphocytes % 23.5 Monocytes % 11.8 H Eosinophils % 2.0 D Basophils % 0.8 D Sodium Potassium Chloride Carbon Dioxide Anion Gap BUN Creatinine Creat Clearance w eGFR Random Glucose Calcium Phosphorus Magnesium Total Bilirubin AST ALT Alkaline Phosphatase Total Protein Albumin Urine Osmolality 456 Ur Random Sodium 111 Urine Creatinine 49.4 03/10/17 03/11/17 03/11/17 13:30 06:00 06:00 WBC RBC Hgb Hct MCV MCHC RDW Plt Count MPV Neutrophils % Lymphocytes % Monocytes % Eosinophils % Basophils % Sodium 133 L Potassium 4.1 Chloride 106 Carbon Dioxide 20 L Anion Gap 7 L BUN 26 H Creatinine 1.3 Creat Clearance w eGFR 54.57 Random Glucose 99 D Calcium 8.0 L Phosphorus 3.6 Magnesium 1.8 Total Bilirubin 0.7 AST 24 ALT 14 Alkaline Phosphatase 60 Total Protein 7.0 Albumin 3.3 L Urine Osmolality Ur Random Sodium 94 Urine Creatinine 27.7 Microbiology 03/08/17 19:30 Blood - Peripheral Venous Blood Culture - Final NO GROWTH AFTER 5 DAYS INCUBATION 03/08/17 18:55 Blood - Peripheral Venous Blood Culture - Final NO GROWTH AFTER 5 DAYS INCUBATION 03/08/17 22:45 Face Gram Stain - Final 03/08/17 22:45 Face Wound Culture - Final Pseudo Fluorescens/Putida Acinetobacter Baumannii/Haemol Imaging CXR, no acute pathology CT facial bones without contrast/soft tissue of neck: patent airway, soft tissue swelling noted consistent with facial and neck cellulites HOSPITAL COURSE: Patient was admitted from the emergency department for herpes zoster (lundberg syndrome) patient was started on acyclovir IV 500mg TID. ID, Dr Valentine was consulted and followed throughout hospitalization. He eas noted to have SHADI upon admission, creatine did down trend after IV hydration. Patient has a past medical history of afib, which became rate controlled and metoprolol was continued. xarelto was continued throughout admission. PLAN * continue valtrex for 7 days * resume regular diet * resume all medications as prescribed * follow up with pcp within 1 week Date of Admission:03/09/17 Date of Discharge: 03/11/17 Minutes to complete discharge: 45 Discharge Summary Reason For Visit: FACIAL CELLULITIS/HERPES ZOSTER Current Active Problems Facial cellulitis (Acute) Herpes zoster (Acute) Renal insufficiency (Acute) Condition: Improved - Instructions Diet, Activity, Other Instructions: resume regular low sodium diet continue taking valtrex as prescribed please follow up with your primary care physician within 1 week if fever, chest pain, or shortness of breath develops please return to the emergency department Disposition: HOME - Home Medications Comprehensive Discharge Medication List: Ambulatory Orders Cephalexin [Keflex] 500 mg PO TID 03/08/17 This patient is new to me today: No Emergency Visit: Yes ED Registration Date: 03/09/17 Care time: The patient presented to the Emergency Department on the above date and was hospitalized for further evaluation of their emergent condition. Critical Care patient: No - Discharge Referral Referred to [facility] Med P.C.: No
[2017-03-11 14:30] VITALS: BP 96/65; PULSE 80; TEMP 97.7
[2017-03-11] MEDS ORDERED: PT OWN MED DRAWER 7, Y5N ONE (17:29)
[2017-03-11] MEDS: DEXTROSE 5%-NORMAL SALINE 1,000 ML IV SCH (17:32)
[2017-03-12] MEDS ORDERED: PNEUMOC 13-VAL CONJ-DIP CRM/PF 0.5 ML DISP.SYRIN IM ONE (10:00)
== END 2017-03-11 18:35 | disposition home or self-care (01) | DRG 74 ==
LOC: FER 17:50 → FM/S 03-09 00:47
PROVIDERS: ADMIT Internal Medicine; ATTEND Nurse Practitioner Family
DX: B02.21 Postherpetic geniculate ganglionitis (principal); L03.211 Cellulitis of face; E87.1 Hypo-osmolality and hyponatremia; J98.11 Atelectasis; N17.9 Acute kidney failure, unspecified; I48.91 Unspecified atrial fibrillation; E86.0 Dehydration; Z79.01 Long term (current) use of anticoagulants; Z85.028 Personal history of other malignant neoplasm of stomach; Z87.891 Personal history of nicotine dependence
CPT/HCPCS: 36415; 70486-TC; 70490-TC; 71010-TC; 80048; 80053; 81003; 81015; 82570; 83605; 83735; 83935; 84100; 84300; 85025; 85610; 85730; 87040; 87070; 87186; 87205; 87252; 93005; 97116-GP; 97161-GP; 99282-25

== ENCOUNTER 2017-03-17 20:47 | Emergency (ER) | payer MEDICARE, OTHER ==
--- NOTE | 2017-03-17 20:59 | PDOC ---
History of Present Illness - History of Present Illness Initial Comments: 03/17/17 21:30 Lens Silverer phone was used to obtain the patients history in cantonese (malian ) The patient is a 71 year old male, mandarin speaking, with a significant past medical history of atrial fibrillation (on Xarelto) and gastric CA s/p resection (9 years ago), who presents to the emergency department with decreased appetite and persistent pain to his left ear since being seen for the same reasons on 03/08/17. As per the patients daughter, the patients left ear feels warmer today than it did last week. The patient was given prescription for valacyclovir for Herpes Zoster at his ED discharge a week ago, and admits to taking the medication as prescribed. He denies chest pain, shortness of breath, headache and dizziness. He denies fever, chills, nausea, vomit, diarrhea and constipation. He denies dysuria, frequency, urgency and hematuria. PCP: Dr. Bower (N/A, in [facility]) Adult PAST MEDICAL HISTORY: atrial fibrillation (on Xarelto) and gastric CA s/p resection PAST SURGICAL HISTORY: no significant history FAMILY HISTORY: no pertinent history SOCIAL HISTORY: Pt lives with family and is employed. MEDICATIONS: reviewed ALLERGIES: As per nursing notes Adult ROS General: No fevers or chills, no weakness, no weight loss HEENT: (+) persistent left ear pain and warmth. No change in vision. No sore throat,. CardioVascular: No chest pain or shortness of breath Respiratory:No cough, or wheezing. Gastrointestinal: no nausea, vomiting, diarrhea or constipation, No rectal bleeding Genitourinary: No dysuria, hematuria, or frequency Musculoskeletal: No joint or muscle pain or swelling Neurologic: No headache, vertigo, dizziness or loss of consciousness Psychiatric: nor depression Skin: No rashes or easy bruising Endocrine: (+) decreased appetite. no increased thirst or abnormal weight change Allergic: no skin or latex allergy All other systems reviewed and normal Adult Exam: GENERAL: The patient is awake, alert, and fully oriented, in no acute distress. HEAD: Normal with no signs of trauma. EYES: Pupils equal, round and reactive to light, extraocular movements intact, sclera anicteric, conjunctiva clear. EXTREMITIES: Normal range of motion, no edema. NEUROLOGICAL: Normal speech, normal gait. PSYCH: Normal mood, normal affect. SKIN: (+) multiple crusting lesions in dermatomal distribution of the 3rd branch facial nerve. Some lesions of the external ear canal with swelling. No purulence, increased warmth or secondary infection at this time. <Mirtha Lemus - Last Filed: 03/17/17 21:38> - General History Source: Patient Exam Limitations: No Limitations - History of Present Illness Initial Comments: 03/17/17 21:42 A portion of this note was documented by scribe services under my direction. I have reviewed the details of the note, within reason, and agree with the documentation. The case summary and management plan written by me. Assessment and plan: This is a 71-year-old male who returns with his daughter for reevaluation of herpes zoster. Patient is already is on Valtrex as well as Keflex and to prevent secondary infection Patient is coming in complaining of pain Spoke with daughter via a Mandarin computer information systems professor as she speaks Mandarin Macedonian. Daughter understands that it is important that he follow-up with an ENT In addition to that I am giving patient a prescription for gabapentin for the pain. <Shaina Rodríguez I - Last Filed: 03/17/17 21:49> - General Chief Complaint: Ear Problem Stated Complaint: LT EAR PAIN Time Seen by Provider: 03/17/17 20:58 Past History <Mirtha Lemus - Last Filed: 03/17/17 21:38> - Past Medical History Cancer: Yes (STOMACH) Cardiac Disorders: Yes (afib) GI Disorders: Yes - Surgical History Abdominal Surgery: Yes (STOMACH CA) - Psycho/Social/Smoking Cessation Hx Suicidal Ideation: No Smoking History: Former smoker Have you smoked in the past 12 months: No Number of Cigarettes Smoked Daily: 20 If you are a former smoker, when did you quit?: 2007 Hx Alcohol Use: No Drug/Substance Use Hx: No Substance Use Type: None Hx Substance Use Treatment: No <Shaina Rodríguez I - Last Filed: 03/17/17 21:49> - Past Medical History Allergies/Adverse Reactions: Allergies Allergy/AdvReac Type Severity Reaction Status Date / Time No Known Allergies Allergy Verified 11/09/16 16:44 Home Medications: Ambulatory Orders Metoprolol Succinate [Toprol XL -] 25 mg PO DAILY tab 03/11/17 Ranitidine [Zantac -] 150 mg PO DAILY tablet 03/11/17 Rivaroxaban [Xarelto -] 15 mg PO DAILY tablet 03/11/17 Valacyclovir HCl [Valtrex -] 1,000 mg PO TID #21 tablet 03/11/17 *Physical Exam - Vital Signs Last Vital Signs Temp Pulse Resp BP Pulse Ox 98.4 F 89 16 117/78 100 03/17/17 21:12 03/17/17 21:12 03/17/17 21:12 03/17/17 21:12 03/17/17 21:12 <Mirtha Lemus - Last Filed: 03/17/17 21:38> *DC/Admit/Observation/Transfer - Attestations Scribe Attestion: 03/17/17 21:31 Documentation prepared by Mirtha Lemus, acting as medical parasitologist for Shaina Rodríguez MD <Mirtha Lemus - Last Filed: 03/17/17 21:38> - Discharge Dispostion Admit: No <Shaina Rodríguez I - Last Filed: 03/17/17 21:49> Diagnosis at time of Disposition: Herpes zoster - Discharge Dispostion Disposition: HOME Condition at time of disposition: Stable - Patient Instructions Additional Instructions: It is very important that you follow-up with an ENT doctor area to Call Dr. Emilie Anderson at . For the pain take gabapentin. He will need to increase the dose slowly in tell you are at a therapeutic dose. On day one in the morning he will take one tablet On day 2 your take one tablet in the morning and one at noon On day 4-year-old take one tablet in the morning and one at noon and one in the evening. On day Four take 2 tablets in the morning 1 at noon and one in the evening On day 5 take 2 tablets in the morning 2 at noon and one in the evening On day 6 take 2 tablets in the morning 2 at noon and 2 in the evening. This is the maximum dose do not exceed 2 in the morning 2 at noon and 2 in the evening. If the gabapentin is not helping the pain at this dose then you can reverse the schedule until it is tapered down to 1 tablet. Do not stop taking it without first tapering it down. Print Language: CANTONESE
[2017-03-17 21:15] VITALS: BP 117/78; PULSE 89; TEMP 98.4; BMI 17.9
== END 2017-03-17 22:00 | disposition home or self-care (01) ==
LOC: FER 20:47
DX: B02.9 Zoster without complications (principal); Z87.891 Personal history of nicotine dependence; I48.91 Unspecified atrial fibrillation; Z85.028 Personal history of other malignant neoplasm of stomach
CPT/HCPCS: 99281-25